=== PATIENT | male | born 1995 | race Caucasian/White ===

== ENCOUNTER → 2017-08-04 16:19 | Outpatient (CLI) | payer OTHER, SELFPAY ==
[2017-08-04 15:18] VITALS: BP 125/80; BMI 34.0
--- NOTE | 2017-08-04 16:27 | EKG12_ITS ---
Test Reason : SYNCOPE Blood Pressure : / mmHG Vent. Rate : 075 BPM Atrial Rate : 075 BPM P-R Int : 148 ms QRS Dur : 092 ms QT Int : 390 ms P-R-T Axes : 030 064 028 degrees QTc Int : 435 ms Normal sinus rhythm Nonspecific ST and T wave abnormality Abnormal ECG Confirmed by SARA BURGER, DIO ([id number]), mapping editor WHITNEY CALDERON ([id number] on 08/06/2017 3:19:15 PM Referred By: Shena Heller Confirmed By:DIO RUIZ MD
[2017-08-04 17:21] LABS: Anion Gap 6 (5-15); BUN 13 mg/dL (7-18); BUN/Creat Ratio 14.5 RATIO (10-20); Calcium,Total 8.5 mg/dL (8.5-10.1); Chloride 104 mmol/L (98-107); EST Glomerular Filtration Rate 110 mL/min (>60); Est Glom Filt Rate - Afr Amer 133 mL/min (>60); Glucose 92 mg/dL (74-106); Magnesium 2.1 mg/dL (1.6-2.6); Potassium 3.7 mmol/L (3.5-5.1); Sodium Level 137 mmol/L (136-145)
[2017-08-04 17:26] LABS: Absolute Lymphocyte Count 1.25 X10^3/ul (0.83-4.51); Absolute Neutrophil Count 2.6 X10^3/uL (2.0-7.7); Basophil# 0.05 X10^3/uL; Basophil% 1.1 % (0-1); Eosinophils% 2.1 % (0-5); Hematocrit 44.4 % (40-54); Hemoglobin 15.8 g/dl (13.0-16.5); Lymphocyte # 1.25 X10^3/ul (4.0); Lymphocyte % 26.7 % (19-41); Mean Corp Hgb Conc 35.6 g/gl (32-36); Mean Corpuscular Hgb 30.2 pg (27.0-32.0); Mean Corpuscular Volume 84.7 fL (80-94); Mean Platelet Vol. 11.7 fl (6.2-12.0); Monocyte# 0.71 X10^3/uL; Monocyte% 15.1 % (0-10); Neutrophil # 2.56 X10^3/uL (2.7-7.7); Neutrophil % 54.6 % (47-70); Platelet Count 157 K/mm3 (150-450); RBC Distribution Width CV 12.6 % (11.6-14.6); RBC Distribution Width SD 38.8 fl (35.1-43.9); Red Blood Count 5.24 M/mm3 (4.6-6.2); White Blood Count 4.7 K/mm3 (4.4-11.0)
[2017-08-04 17:27] LABS: POSITIVE COUNT NO; POSITIVE DIFFERENTIAL NO; POSITIVE MORPHOLOGY NO
== END ==
PROVIDERS: Family Provider Internal Medicine; PCP Internal Medicine; Visit Provider Internal Medicine
DX: R55 Syncope and collapse (principal)
CPT/HCPCS: 36415; 80048; 83735; 85025; 93005

== ENCOUNTER → 2017-09-03 07:20 | Outpatient (CLI) | payer OTHER, SELFPAY ==
[2017-08-04 15:18] VITALS: BP 125/80; BMI 34.0
--- NOTE | 2017-09-06 15:56 | EEG ---
- Electroencephalogram Date of service: 09/03/2017 History EEG is being done in this 22 yr M to rule out seizures EEG Description: This is an 18 channel EEG with 10-20 lead placement system. Bipolar montages, Referential and Circumferential montages were reviewed. Photic stimulation and Hyperventilation were performed. The posterior dominant background rhythm is 10 HZ synchronous, symmetric, reacting to eye opening and closing. Photo stimulation elicited normal driving response but no abnormal photoparoxysmal response. Hyperventilation did not elicit any abnormal photoparoxysmal response. Sleep was identified. There was no epileptiform discharges or electrographic seizures noted during this recording. EEG Interpretation This is a normal awake and asleep EEG. There is no epileptiform discharges or electrographic seizures noted during the record.
== END ==
PROVIDERS: Family Provider Internal Medicine; PCP Internal Medicine; Visit Provider Internal Medicine
DX: R55 Syncope and collapse (principal)
CPT/HCPCS: 95819

== ENCOUNTER → 2017-10-22 14:25 | Outpatient (CLI) | payer OTHER, SELFPAY ==
--- NOTE | 2017-10-22 14:27 | US_ITS ---
STUDY: THYROID ULTRASOUND REASON FOR EXAM: Male, 22 years old. Fullness of neck TECHNIQUE: Ultrasound evaluation of the thyroid was performed with real-time and static santana-scale imaging. COMPARISON: None. FINDINGS: RIGHT LOBE: The right lobe of the thyroid gland measures 5.0 x 1.8 x 1.8 cm. There is a homogeneous echotexture. There are no demonstrated solid, cystic or complex lesions. LEFT LOBE: The left lobe of the thyroid gland measures 5.4 x 2.0 x 1.7 cm. There is a homogeneous echotexture. There is a cyst containing debris of the mid pole measuring 1.4 x 1.0 x 0.9 cm. ISTHMUS: The isthmus measures 4 mm. . The regional lymph nodes are normal. US/Thyroid IMPRESSION: The left and right thyroid lobes are slightly generous in size. There is a cyst containing debris of the midpole of the left thyroid lobe measuring 1.4 x 1.0 x 0.9 cm. Electronically Signed: Pro Kelly MD at 23:54 EDT , Service support ,
[2017-10-22 15:34] LABS: Cholesterol 109 mg/dL (200); High Density Lipoprotein 43 mg/dL; T4 Free Direct 1.09 ng/dL (0.76-1.46); Thyroid Stim Hormone (TSH) 1.51 uIU/mL (0.358-3.74); Triglycerides 54 mg/dL; Very Low Density Lipoprotein 11 mg/dL (5-40)
== END ==
LOC: US 14:27
PROVIDERS: Family Provider Internal Medicine; PCP Internal Medicine; Visit Provider Nurse Practitioner Family
DX: E07.89 Other specified disorders of thyroid (principal); E66.9 Obesity, unspecified; R03.0 Elevated blood-pressure reading, without diagnosis of hypertension; Z13.220 Encounter for screening for lipoid disorders; Z13.29 Encounter for screening for other suspected endocrine disorder
CPT/HCPCS: 36415; 76536; 80061; 84439; 84443

== ENCOUNTER → 2020-06-03 | Outpatient (CLI) | payer OTHER, SELFPAY ==
[2020-06-03 16:22] VITALS: BMI 37.3
== END | disposition home or self-care (01) ==
LOC: LABSPEC 18:06
PROVIDERS: PCP Internal Medicine; Visit Provider Physician Assistant Surgical
DX: U07.1 COVID-19 (principal)
CPT/HCPCS: 87635; U0003